=== PATIENT | male | born 1995 | race Caucasian/White ===

== ENCOUNTER 2019-01-10 08:34 | Emergency (ER) | payer OTHER ==
[~2019-01-10] VITALS: Ht 175.3 cm; Wt 68.0 kg
[2019-01-10] MEDS ORDERED: IBUPROFEN 800800 MG PO (09:29)
[2019-01-10 09:39] VITALS: BP 136/77
== END 2019-01-10 09:40 | disposition home or self-care (01) ==
LOC: M.ERS 08:34
DX: S40.012A Contusion of left shoulder, initial encounter (principal); Z91.041 Radiographic dye allergy status; V18.0XXA Pedal cycle driver injured in noncollision transport accident in nontraffic accident, initial encounter; Y92.89 Other specified places as the place of occurrence of the external cause; Y93.89 Activity, other specified; Y99.8 Other external cause status